=== PATIENT | male | born 1995 | race Two or more races ===

== ENCOUNTER 2020-04-15 00:12 | Emergency (ER) | payer MEDICAID, OTHER ==
[~2020-04-15] VITALS: Ht 162.6 cm; Wt 116.1 kg
--- NOTE | 2020-04-15 00:25 | NUR ---
ED Nurse Note: Patient reports having headaches everyday since january. patient admits currently seeing a specialist. Patient reports today because of worsening headache and patient also reports legs and arm pain as well.
[2020-04-15 00:26] VITALS: BP 146/86
--- NOTE | 2020-04-15 00:27 | NUR ---
ED Nurse Note: Patient reports no medical history but admits taking flonase daily since February, as prescribed by his doctor.
--- NOTE | 2020-04-15 00:36 | Emergency Room Report ---
History of Present Illness General Chief Complaint: Headache Source: Patient Present Illness HPI Is a 24-year-old male with no past medical history. He presents with complaint of headache. This headache been on and off since January. He saw his primary care doctor several times and prescribed medication for it. Is not helping. He had x-ray done recently and was referred to ear nose and throat doctor. He was prescribed Flonase and is not helping. Headache is usually frontal in nature. Initially he seeing spots and having nausea. Now is just a throbbing headache. Nausea but no vomiting. No fever or chills. No focal deficit. Nothing made it better. Usually, lights and sounds made it worse but now nothing made it worse. Lmfp-eye-djauryh Tylenol not helping. Pain is 8 out of 10. 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 COVID-19 Screening: Negative COVID-19 COVID-19 Testing Source: Hospital in [place], unable to recall exact place Patient History Past Medical History: see triage record, old chart reviewed Past Surgical History: none Pertinent Family History: none Social History: Denies: smoking Immunizations: other Reviewed Nursing Documentation: PMH: Agreed; PSxH: Agreed Nursing Documentation-PMH Past Medical History: No Stated History Hx Cardiac Problems: No Hx Hypertension: No Hx Pacemaker: No Hx Asthma: No Hx COPD: No Hx Diabetes: No Hx Cancer: No Hx Gastrointestinal Problems: No Hx Dialysis: No History Of Psychiatric Problem: No Hx Neurological Problems: No Hx Cerebrovascular Accident: No Hx Seizures: No Review of Systems Eye: Denies: eye pain, blurred vision ENT: Denies: ear pain, nose congestion, throat swelling Respiratory: Denies: cough, shortness of breath Cardiovascular: Denies: chest pain, palpitations Gastrointestinal: Denies: abdominal pain, diarrhea, nausea, vomiting Musculoskeletal: Denies: back pain, joint pain Skin: Denies: rash Neurological: Reports: headache; Denies: numbness Endocrine: Denies: increased thirst, increased urine Hematologic/Lymphatic: Denies: easy bruising All Other Systems: negative except mentioned in HPI Physical Exam Vital Signs Date Time Temp Pulse Resp B/P (MAP) Pulse Ox O2 Delivery O2 Flow Rate FiO2 04/15/20 00:16 98.8 104 22 146/86 (106) 96 Room Air Vitals unremarkable Sp02 EP Interpretation: reviewed, normal General Appearance: well appearing, no apparent distress, alert Head: normocephalic, atraumatic Eyes: bilateral eye PERRL, bilateral eye EOMI ENT: hearing grossly normal, normal pharynx Neck: full range of motion, supple, no meningismus Respiratory: chest non-tender, lungs clear, normal breath sounds Cardiovascular #1: regular rate, rhythm, no murmur Gastrointestinal: normal bowel sounds, non tender, no mass, no organomegaly, no bruit, non-distended Musculoskeletal: back normal, normal range of motion, gait/station normal Psychiatric: mood/affect normal Medical Decision Making Diagnostic Impression: Primary Impression: Headache Qualified Codes: R51 - Headache ER Course Patient presents with headache. No evidence of meningitis, intracranial bleed or neoplastic process. Pain is well controlled now. This most likely migraine in nature. CT/MRI/US Diagnostic Results CT/MRI/US Diagnostic Results : Imaging Test Ordered: CT head Impression Negative per radiologist Last Vital Signs Date Time Temp Pulse Resp B/P (MAP) Pulse Ox O2 Delivery O2 Flow Rate FiO2 04/15/20 00:26 98.8 89 22 146/86 96 Room Air Status: improved Disposition: HOME, SELF-CARE Condition: Stable Scripts Hydrocodone/Acetaminophen 5-325* (HYDROCODONE/ACETAMINOPHEN 5-325*) 1 Each Tablet 1 TAB ORAL Q6H PRN for For Pain, #20 TAB 0 Refills Prov: Nathen Scott MD 04/15/20 Amitriptyline HCl (ELAVIL*) 25 Mg Tablet 50 MG ORAL BEDTIME, #60 TAB Prov: Nathen Scott MD 04/15/20 Patient Instructions: General Headache Without Cause Additional Instructions: Follow-up with your doctor in 7 days. You may need referral to see a neurologist. Return if symptoms worsen. Nathen Scott MD Apr 15, 2020 00:36
[2020-04-15] MEDS ORDERED: DiphenhydrAMINE 50mg/ml Inj IVP ONE (00:45)
[2020-04-15] MEDS ORDERED: Metoclopramide 10mg/2ml Inj IVP ONE (00:45)
[2020-04-15] MEDS ORDERED: Ketorolac 30mg Inj IV ONE (00:45)
--- NOTE | 2020-04-15 01:14 | NUR ---
ED Nurse Note: Patient is currently sleeping, will continue to monitor for CT of the head and subsequent report.
--- NOTE | 2020-04-15 02:08 | NUR ---
ED Nurse Note: Ana went down for CT accompanied by snow technician.
--- NOTE | 2020-04-15 02:21 | NUR ---
ED Nurse Note: Patient returned from CT without complication.
--- NOTE | 2020-04-15 02:33 | Diagnostic Imaging Report ---
EXAM: CT Head Without Intravenous Contrast CLINICAL HISTORY: PAIN TECHNIQUE: Axial computed tomography images of the head/brain without intravenous contrast. CTDI is 53.4 mGy and DLP is 1072.2 mGy-cm. One or more of the following dose reduction techniques were used: automated exposure control, adjustment of the mA and/or kV according to patient size, use of iterative reconstruction technique. COMPARISON: No relevant prior studies available. FINDINGS: Brain: No acute hemorrhage, large hypodensity, or significant mass effect. Ventricles: No significant abnormality. Bones/joints: No acute abnormality. Soft tissues: No significant abnormality. Sinuses: Mild mucosal thickening. No air-fluid levels. Mastoid air cells: No significant abnormality. IMPRESSION: No acute intracranial abnormality.
[2020-04-15] MEDS ORDERED: HYDROCODON-ACE1 EA15 ORAL (02:38)
[2020-04-15] MEDS ORDERED: AMITRIPTYLINE25 MG ORAL (02:38)
[2020-04-15 02:44] VITALS: BP 146/86
--- NOTE | 2020-04-15 02:44 | NUR ---
ER DISCHARGE NOTE: Patient is cleared to be discharged per ERMD, pt is aox4, on room air, with stable vital signs. pt was given dc and prescription instructions, pt was able to verbalize understanding, pt id band and iv site removed without complications. pt is able to ambulate with steady gait. pt took all belongings.
== END 2020-04-15 02:44 | disposition home or self-care (01) ==
LOC: EMR 00:30
DX: R51 Headache (principal)
CPT/HCPCS: 70450; 96374; 96375; J1200; J1885; J2765; Z7502; 99284

== ENCOUNTER 2020-04-21 21:31 | Emergency (ER) | payer OTHER ==
[~2020-04-21 21:31] MED LIST: AMITRIPTYLINE25 MG ORAL; HYDROCODON-ACE1 EA15 ORAL
[2020-04-21] MEDS ORDERED: Dicyclomine HCl 10mg/5ml oral soln ORAL ONE (22:45)
[2020-04-21] MEDS ORDERED: Lidocaine 2% Visc 15ml soln ORAL ONE (22:45)
[2020-04-21] MEDS ORDERED: Mylanta II UD 30ml ORAL ONE (22:45)
[2020-04-22] MEDS ORDERED: DICYCLOMINE HCL10 MG ORAL (00:12)
[2020-04-22] MEDS ORDERED: OMEPRAZOLE20 M2 ORAL (00:12)
== END 2020-04-22 00:35 | disposition home or self-care (01) ==
DX: K29.70 Gastritis, unspecified, without bleeding (principal); E11.9 Type 2 diabetes mellitus without complications; E66.9 Obesity, unspecified; Z68.41 Body mass index [BMI] 40.0-44.9, adult
CPT/HCPCS: 36415; 80053; 81003; 83690; 84484; 85025; 96360; J7030; Z7502

== ENCOUNTER 2020-05-27 17:24 | Emergency (ER) | payer OTHER ==
[~2020-05-27] VITALS: Ht 160 cm; Wt 113.4 kg
[~2020-05-27 17:24] MED LIST changes: +DICYCLOMINE HCL10 MG ORAL; +OMEPRAZOLE20 M2 ORAL
[2020-05-27 17:30] VITALS: BP 156/88
--- NOTE | 2020-05-27 17:30 | NUR ---
ED Nurse Note: Patient walked into ED from home c/o fast heart rate and intermittent chest pain/pressure that started 3 hours ago unprovoked (04/14). Patient states he has been feeling anxious recently and small things make his heart rate increase. patient denies any recent medical hx. Patient AxO x 4, 20 g IV started in left AC, blood drawn and sent to lab. Urine sent to lab.
[2020-05-27 18:39] LABS: BASOPHILS % (AUTO) 1.2 % (0.0-2.0); EOSINOPHILS % (AUTO) 1.6 % (0.0-3.0); HEMATOCRIT 43.1 % (42.0-52.0); LYMPHOCYTES % (AUTO) 26.3 % (20.0-45.0); MEAN CORPUSCULAR VOLUME 88 FL (80-99); MONOCYTES % (AUTO) 9.7 % (1.0-10.0); NEUTROPHILS % (AUTO) 61.2 % (45.0-75.0); PLATELET COUNT 261 K/UL (150-450); RED BLOOD COUNT 4.91 M/UL (4.70-6.10); RED CELL DISTRIBUTION WIDTH 11.1 % (11.6-14.8); WHITE BLOOD COUNT 8.1 K/UL (4.8-10.8)
--- NOTE | 2020-05-27 18:41 | Diagnostic Imaging Report ---
EXAM: XR Chest, 1 View CLINICAL HISTORY: CP TECHNIQUE: Frontal view of the chest. COMPARISON: No relevant prior studies available. FINDINGS: Lungs: Unremarkable. No consolidation. Pleural space: No pleural effusion. No pneumothorax. Heart: Unremarkable. No cardiomegaly. Bones/joints: Unremarkable. IMPRESSION: No acute cardiopulmonary abnormality.
[2020-05-27 18:51] LABS: ANION GAP 13 mmol/L (5-15); BLOOD UREA NITROGEN 21 mg/dL (7-18); CALCIUM 9.4 MG/DL (8.5-10.1); CARBON DIOXIDE 25 MMOL/L (21-32); CHLORIDE 104 MMOL/L (98-107); CREATININE 1.3 MG/DL (0.55-1.30); POTASSIUM 3.4 MMOL/L (3.5-5.1); SODIUM 142 MMOL/L (136-145)
[2020-05-27 18:55] LABS: ALANINE AMINOTRANSFERASE 32 U/L (12-78); ALBUMIN 4.6 G/DL (3.4-5.0); ALBUMIN/GLOBULIN RATIO 1.6 (1.0-2.7); ALKALINE PHOSPHATASE 54 U/L (46-116); ASPARTATE AMINO TRANSFERASE 25 U/L (15-37); BILIRUBIN,TOTAL 0.7 MG/DL (0.2-1.0)
--- NOTE | 2020-05-27 19:03 | NUR ---
HAND-OFF: Report given to Alexandria CHANEY.
--- NOTE | 2020-05-27 19:14 | NUR ---
ED Nurse Note: pt care endorsed by SHIV Edward. pt does not appear to be in any distress at this time, watching a movie on his phone. pt's HR has decreased to 89 BPM, vss. IV line is intact and patent with NS infusing per ERMD orders. will continue to monitor pt
[2020-05-27 19:18] VITALS: BP 127/82
[2020-05-27 20:17] VITALS: BP 127/82
--- NOTE | 2020-05-27 20:17 | NUR ---
ER DISCHARGE NOTE: Patient is cleared to be discharged per ERMD, pt is aox4, on room air, with stable vital signs and HR in a stable range. he verbalized improvement of symptoms. pt was given dc and f/u instructions, to see his PCP within the next 7 days. pt was able to verbalize understanding, pt id band and iv site removed without complications. pt is able to ambulate with steady gait. pt took all belongings.
--- NOTE | 2020-05-27 20:20 | Emergency Room Report ---
History of Present Illness General Chief Complaint: Palpitations Source: Patient Present Illness HPI 24-year-old male presents the ED for evaluation. States for the last 3 days his heart is been racing. In triage heart rate in 130s. Comes and goes. States he has been having discomfort as well. Dull, 7 out of 10, nonradiating. States is making him anxious. Denies drug use. States he feels dizzy. No other aggravating relieving factors. 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 Patient History Past Medical History: none Past Surgical History: none Pertinent Family History: none Social History: Denies: smoking, alcohol use, drug use Immunizations: UTD Reviewed Nursing Documentation: PMH: Agreed; PSxH: Agreed Nursing Documentation-PMH Past Medical History: No Stated History Hx Cardiac Problems: No Hx Hypertension: No Hx Pacemaker: No Hx Asthma: No Hx COPD: No Hx Diabetes: No Hx Cancer: No Hx Gastrointestinal Problems: No Hx Dialysis: No Hx Neurological Problems: No Hx Cerebrovascular Accident: No Hx Seizures: No Review of Systems All Other Systems: negative except mentioned in HPI Physical Exam Vital Signs Date Time Temp Pulse Resp B/P (MAP) Pulse Ox O2 Delivery O2 Flow Rate FiO2 05/27/20 17:29 98.4 127 20 156/88 (110) 97 Room Air Sp02 EP Interpretation: reviewed, normal General Appearance: no apparent distress, alert, GCS 15, non-toxic Head: normocephalic, atraumatic Eyes: bilateral eye normal inspection, bilateral eye PERRL ENT: hearing grossly normal, normal pharynx, no angioedema, normal voice Neck: full range of motion, supple/symm/no masses Respiratory: chest non-tender, lungs clear, normal breath sounds, speaking full sentences Cardiovascular #1: no edema, tachycardia Cardiovascular #2: 2+ carotid (R), 2+ carotid (L), 2+ radial (R), 2+ radial (L) , 2+ dorsalis pedis (R), 2+ dorsalis pedis (L) Gastrointestinal: normal bowel sounds, non tender, soft, non-distended, no guarding, no rebound Rectal: deferred Genitourinary: normal inspection, no CVA tenderness Musculoskeletal: back normal, normal range of motion, gait/station normal, non- tender Neurologic: alert, motor strength/tone normal, oriented x3, sensory intact, responsive, speech normal Psychiatric: judgement/insight normal, memory normal, mood/affect normal, no suicidal/homicidal ideation Reflexes: 3+ bicep (R), 3+ bicep (L), 3+ tricep (R), 3+ tricep (L), 3+ knee (R) , 3+ knee (L) Lymphatic: no adenopathy Medical Decision Making Diagnostic Impression: Primary Impression: Palpitations ER Course Hospital Course 24-year-old M presents ED complaining of palpitations Differential diagnoses include: afib, Vtach, SVT, anxiety, dehydration Clinical course Patient placed on stretcher. After initial history and physical I ordered labs , EKG, chest x-ray, IVFs. labs reviewed- all electrolytes normal, troponins negative, no leukocytosis, hemoglobin/hematocrit stable EKG - sinus tachycardia no acute ischemic changes interpreted by me Chest x-ray-no cardiomegaly, no rib fracture, no pneumothorax, no acute process Tachycardia improved with IV fluids. I discussed findings with patient. States he feels better. Possible etiologies include anxiety. Possibly dehydration. Patient is safe for discharge at this time. States he has a PMD. I. I feel this is a highly complex case requiring extensive working including EKG/Rhythm strip, Xray/CT/US, Blood/urine lab work, repeat exams while in ED, and administration of strong opiates/narcotics for pain control, admission to hospital or close patient follow up. Diagnosis - palpitations Stable and discharged to home. Instructed to followup with PMD. Return to ED if symptoms recur or worsen Laboratory Tests Test 05/27/20 18:10 05/27/20 18:50 White Blood Count 8.1 K/UL (4.8-10.8) Red Blood Count 4.91 M/UL (4.70-6.10) Hemoglobin 15.0 G/DL (14.2-18.0) Hematocrit 43.1 % (42.0-52.0) Mean Corpuscular Volume 88 FL (80-99) Mean Corpuscular Hemoglobin 30.5 PG (27.0-31.0) Mean Corpuscular Hemoglobin Concent 34.7 G/DL (32.0-36.0) Red Cell Distribution Width 11.1 % (11.6-14.8) L Platelet Count 261 K/UL (150-450) Mean Platelet Volume 7.3 FL (6.5-10.1) Neutrophils (%) (Auto) 61.2 % (45.0-75.0) Lymphocytes (%) (Auto) 26.3 % (20.0-45.0) Monocytes (%) (Auto) 9.7 % (1.0-10.0) Eosinophils (%) (Auto) 1.6 % (0.0-3.0) Basophils (%) (Auto) 1.2 % (0.0-2.0) Sodium Level 142 MMOL/L (136-145) Potassium Level 3.4 MMOL/L (3.5-5.1) L Chloride Level 104 MMOL/L (98-107) Carbon Dioxide Level 25 MMOL/L (21-32) Anion Gap 13 mmol/L (5-15) Blood Urea Nitrogen 21 mg/dL (7-18) H Creatinine 1.3 MG/DL (0.55-1.30) Estimat Glomerular Filtration Rate > 60 mL/min (>60) Glucose Level 113 MG/DL (74-106) H Calcium Level 9.4 MG/DL (8.5-10.1) Total Bilirubin 0.7 MG/DL (0.2-1.0) Aspartate Amino Transf (AST/SGOT) 25 U/L (15-37) Alanine Aminotransferase (ALT/SGPT) 32 U/L (12-78) Alkaline Phosphatase 54 U/L (46-116) Troponin I 0.000 ng/mL (0.000-0.056) Total Protein 7.4 G/DL (6.4-8.2) Albumin 4.6 G/DL (3.4-5.0) Globulin 2.8 g/dL Albumin/Globulin Ratio 1.6 (1.0-2.7) Urine Opiates Screen Negative (NEGATIVE) Urine Barbiturates Screen Negative (NEGATIVE) Phencyclidine (PCP) Screen Negative (NEGATIVE) Urine Amphetamines Screen Negative (NEGATIVE) Urine Benzodiazepines Screen Negative (NEGATIVE) Urine Cocaine Screen Negative (NEGATIVE) Urine Marijuana (THC) Screen Negative (NEGATIVE) EKG Diagnostic Results Rate: tachycardiac Rhythm: NSR ST Segments: no acute changes ASA given to the pt in ED: No Rhythm Strip Diag. Results EP Interpretation: yes Rhythm: NSR, no PVC's, no ectopy Chest X-Ray Diagnostic Results Chest X-Ray Diagnostic Results : Chest X-Ray Ordered: Yes # of Views/Limited/Complete: 1 View Indication: Chest Pain EP Interpretation: Yes Interpretation: no consolidation, no effusion, no pneumothorax, no acute cardiopulmonary disease Impression: No acute disease Electronically Signed by: Electronically signed by Zohaib Ricks MD Last Vital Signs Date Time Temp Pulse Resp B/P (MAP) Pulse Ox O2 Delivery O2 Flow Rate FiO2 05/27/20 19:18 89 17 127/82 100 Room Air 05/27/20 17:30 98.4 Status: improved Disposition: HOME, SELF-CARE Condition: Stable Referrals: [facility]ERR[facility] (PCP) [facility] [place] [facility] Patient Instructions: Palpitations, [id number] Zohaib Ricks MD May 27, 2020 20:20
== END 2020-05-27 20:20 | disposition home or self-care (01) ==
LOC: EMR 18:03
DX: R00.2 Palpitations (principal); R00.0 Tachycardia, unspecified
CPT/HCPCS: 36415; 71045; 80053; 80307; 84484; 85025; 93005; 96360; Z7502; 99284